=== PATIENT | female | born 1995 | race Caucasian/White ===

== ENCOUNTER 2024-06-07 15:39 | Emergency (ER) | payer OTHER ==
[~2024-06-07] VITALS: Ht 157.5 cm; Wt 49.9 kg
[2024-06-07 17:27] VITALS: BP 106/63; TEMP 99
[2024-06-07 19:08] LABS: BASOPHILS # (AUTO) 0.1 K/uL (0.0-0.2); BASOPHILS % (AUTO) 0.9 % (0.0-2.0); EOSINOPHILS # (AUTO) 0.1 K/uL (0.0-0.7); EOSINOPHILS % (AUTO) 1.1 % (0.0-6.0); HEMATOCRIT 44 % (33-45); HEMOGLOBIN 14.9 g/dL (11.5-14.8); LYMPHOCYTES % (AUTO) 31.5 % (20.0-44.0); MEAN CORPUSCULAR HEMOGLOBIN 29 PG (26.0-33.0); MEAN CORPUSCULAR HGB CONC 34 g/dl (31.0-36.0); MEAN CORPUSCULAR VOLUME 86 fL (82-100); MONOCYTES # (AUTO) 0.5 K/uL (0.1-1.30); MONOCYTES % (AUTO) 7.5 % (2.0-12.0); NEUTROPHILS # (AUTO) 3.7 K/uL (1.8-8.9); PLATELET COUNT (AUTO) 331 K/uL (150-450); RED BLOOD CELL COUNT(AUTO) 5.16 MIL/uL (4.0-5.2); RED CELL DISTRIBUTION WIDTH 13.3 % (11.5-15.0); WHITE BLOOD COUNT (AUTO) 6.3 K/uL (4.3-11.0)
[2024-06-07] MEDS: BUDESONIDE RESPULE INH 0.25 MG/2 ML AMPUL.NEB NEB ONE (19:25)
[2024-06-07 19:29] LABS: CALCIUM, SERUM 9.7 mg/dL (8.5-10.1); CREATININE 0.7 mg/dL (0.6-1.3); POTASSIUM 4.1 mmol/L (3.5-5.1)
[2024-06-07 19:41] VITALS: O2SAT 99
[2024-06-07] MEDS ORDERED: BUDE180A INH (19:51)
[2024-06-07 19:56] VITALS: O2SAT 99
== END 2024-06-07 20:23 | disposition home or self-care (01) ==
LOC: ER 15:45
DX: R06.02 Shortness of breath (principal); F31.9 Bipolar disorder, unspecified; J45.909 Unspecified asthma, uncomplicated; Z79.51 Long term (current) use of inhaled steroids
CPT/HCPCS: 36415; 71045-TC; 80048-TC; 85025-TC; 85378-TC

== ENCOUNTER 2024-06-14 19:23 | Emergency (ER) | payer OTHER ==
[~2024-06-14] VITALS: Ht 162.6 cm; Wt 49.9 kg
[~2024-06-14 19:23] MED LIST: BUDE180A INH
[2024-06-14 19:48] VITALS: TEMP 98.2
[2024-06-14 22:55] LABS: BASOPHILS # (AUTO) 0.1 K/uL (0.0-0.2); BASOPHILS % (AUTO) 0.8 % (0.0-2.0); EOSINOPHILS % (AUTO) 0.1 % (0.0-6.0); HEMATOCRIT 38 % (33-45); HEMOGLOBIN 13.1 g/dL (11.5-14.8); LYMPHOCYTES # (AUTO) 1.5 K/uL (0.8-4.8); LYMPHOCYTES % (AUTO) 14.6 % (20.0-44.0); MEAN CORPUSCULAR HEMOGLOBIN 29 PG (26.0-33.0); MEAN CORPUSCULAR HGB CONC 34 g/dl (31.0-36.0); MEAN CORPUSCULAR VOLUME 85 fL (82-100); MONOCYTES # (AUTO) 0.7 K/uL (0.1-1.30); MONOCYTES % (AUTO) 6.8 % (2.0-12.0); NEUTROPHILS # (AUTO) 7.9 K/uL (1.8-8.9); NEUTROPHILS % (AUTO) 77.7 % (43.0-81.0); PLATELET COUNT (AUTO) 258 K/uL (150-450); RED BLOOD CELL COUNT(AUTO) 4.47 MIL/uL (4.0-5.2); RED CELL DISTRIBUTION WIDTH 13.1 % (11.5-15.0); WHITE BLOOD COUNT (AUTO) 10.2 K/uL (4.3-11.0)
[2024-06-14 23:19] LABS: CALCIUM, SERUM 8.8 mg/dL (8.5-10.1); CREATININE 0.8 mg/dL (0.6-1.3); POTASSIUM 4.3 mmol/L (3.5-5.1)
[2024-06-14 23:30] LABS: T4 (THYROXINE) 12.4 ug/dL (4.7-13.3); THYROID STIMULATING HORMONE 0.9 uIU/mL (0.358-3.74)
[2024-06-15] MEDS ORDERED: LORAZEPAM 1 MG TABLET ONE (01:10)
[2024-06-15] MEDS: LORAZEPAM 1 MG TABLET PO ONE (01:21)
[2024-06-15] MEDS: IV NS 0.9% 1,000 ML BAG IV ONE (01:21)
[2024-06-15] MEDS ORDERED: LORA-258 PO (02:05)
[2024-06-15] MEDS ORDERED: PROP10TA10 PO (02:05)
[2024-06-15 02:23] VITALS: BP 105/69; O2SAT 98
== END 2024-06-15 02:24 | disposition home or self-care (01) ==
LOC: ER 19:27
DX: E04.1 Nontoxic single thyroid nodule (principal); R55 Syncope and collapse; F31.9 Bipolar disorder, unspecified; J45.909 Unspecified asthma, uncomplicated; Z79.51 Long term (current) use of inhaled steroids
CPT/HCPCS: 99284; 93005; 76536; 85025; 80048; 84436; 36415; 84443; 84702; 84480; 96360; J7030